=== PATIENT | female | born 1950 | race Caucasian/White ===

== ENCOUNTER → 2017-12-12 | Outpatient (CLI) | payer MEDICARE, OTHER ==
[~2017-12-12] MED LIST: ADULT LOW DOSE81 MG PO; ALDACTONE50 MG PO; ALLOPURINOL; ALLOPURINOL 30300 M1 PO; AMARYL4 MG PO; CARAFATE 1 GM TA1 GM PO; CELEXA40 MG PO; CIPROFLOXACIN500 M3 PO; CLEOCIN HCL75 MG; DILTIAZEM ER240 M1 PO; DILTIAZEM HCL90 MG PO; GLUCOPHAGE XR750 MG PO; IBUPROFEN 200200 M1 PO; LASIX 40 MG TAB40 M1 PO; LEVAQUIN 750 M750 MG PO; LEVEMIR SC; LEVOTHYROXIN0.025 MG PO; LISINOPRIL40 MG PO; LOW DOSE ASPIRI81 M1; MIRALAX17 GM PO; NITROFURANTOIN100 MG PO; NORCO 5-325 TA1 EAC1 PO; NORCO 5-325 TA1 EACH PO; NOVOLOG100 UNIT/1 SC; OXYCODONE HCL 55 MG PO; PEPCID40 MG PO; PERCOCET 7.5-31 EACH PO; PROZAC 20 MG20 MG PO; SERTRALINE HCL50 MG PO; SILVADENE20 GM TP; SYNTHROID100 MC1 PO; VALIUM5 MG PO; VITAMIN D1000 UNI1 PO; ZESTRIL10 MG PO; ZOCOR 20 MG TAB20 M1 PO; ZOFRAN4 MG; [UNRECOGNIZED DRUG - OTHER] PO; [UNRECOGNIZED DRUG - REMARK]
== END ==
LOC: M.CT 10:47
DX: K43.9 Ventral hernia without obstruction or gangrene (principal)

== ENCOUNTER → 2018-01-30 | Day surgery (SDC) | payer MEDICARE, OTHER ==
[~2018-01-30] VITALS: Ht 170.2 cm; Wt 104.3 kg
[2018-01-30 08:01] LABS: HEMATOCRIT 45.4 % (37.0-47.0); HEMOGLOBIN 15.1 gm/dL (12.0-15.0); MCHC 33.4 g/dL (28.0-37.0); MCV 89.9 fL (80.0-100.0); MPV 7.6 fl. (7.2-11.1); RBC 5.05 mil/uL (4.20-5.00); RDW-CV 13.5 % (10.5-14.5); WBC 9.9 thou/uL (4.0-11.0)
[2018-01-30 08:16] LABS: CALCIUM 8.5 mg/dL (8.5-10.1); CREATININE 0.9 mg/dL (0.6-1.3); POTASSIUM 3.3 mmol/L (3.5-5.1)
[2018-01-30 08:21] LABS: ALBUMIN 3.2 g/dL (3.4-5.0); TOTAL BILIRUBIN 0.8 mg/dL (<0.1-1.0); TOTAL PROTEIN 6.4 g/dL (6.4-8.2)
--- NOTE | 2018-01-30 16:31 | EKG ---
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1950 Requested By: Dorie Alcantar Order Number: [id number] Reading MD: Shahzad Chauhan Measurements Intervals [place] Rate: 66 P: 38 PA: 153 QRS: 10 QRSD: 97 T: 23 QT: 441 QTc: 463 Interpretive Statements Sinus rhythm Abnormal R-wave progression, early transition Nonspecific T-wave abnormality anteriorly Compared to ECG 02/01/2013 21:27:17 ST (T wave) deviation no longer present Electronically Signed On 01-30-2018 16:31:24 CDT by Shahzad Chauhan [email or web address] <ELECTRONICALLY SIGNED> By: Shahzad Chauhan MD, [facility] 01/30/18 1631 0749 0749 Shahzad Chauhan MD, [facility] /EPI
--- NOTE | 2018-02-03 13:08 | PATH ---
[address] [address] PATHOLOGY RPT PROCEDURE Name: EVELYN SCOTT Room: [facility]#: [id number] Admission: 01/30/18 Date of : 52 Discharge: Report #: [id number] Path Case #: [id number] [facility] Accession Number: [id number] . 01 Material submitted: . HERNIA SAC . 01 Clinical history: . Umbilical hernia . 02 Diagnosis: Hernia sac: - Benign mesothelial-lined fibromembranous/fibrofatty tissue. (NAUN/db; 02/02/18) LBQ/02/02/2018 . 02 Electronically signed: . Aniket Hernandez MD, Pathologist NPI- [id number] . 01 Gross description: . The specimen is received in formalin, labeled "Evelyn Scott, hernia sac", consist of a fibro-membranous tissue measuring 6.0 x 3.0 x 1.0 cm. No discrete nodules or masses identified. Integrated Marketing Specialist sections are submitted in A1. . (SWS; 01/30/2018) SHS/SHS . 02 Pathologist provided ICD-10: K46.9 . 02 CPT . 351729 Performed at: [address], [place] [id number] MD Corbin Ma MD Phone: [phone] Performed at: 02 [facility] [address], [place], [place] [id number] MD Aniket Hernandez MD Phone: [phone]
--- NOTE | 2018-02-05 13:35 | OP ---
[facility] [address] [place] [address] OPERATIVE REPORT Name: MICKY CALVILLO Room: [facility]#: [id number] Admission: 01/30/18 Attend Phys: Dorie Alcantar DO Discharge: Date of : 52 Report #: [id number] THIS REPORT FOR: //name// CC: Dorie Azar DATE OF SERVICE: 01/30/2018 PREPROCEDURE DIAGNOSIS: Umbilical hernia. POSTPROCEDURE DIAGNOSES: Umbilical hernia and an epigastric hernia. FINDINGS: The umbilical hernia measured 1 x 1 cm and contained omentum. The epigastric hernia measured 3 x 2 cm, had a very large hernia sac, which contained incarcerated omentum. SURGEON: Dorie Alcantar DO COSURGEON: Cordell Kelley, PGY2. HYDRAULIC JACK MECHANIC: Landon MS3. OPERATION PERFORMED: Repair of umbilical and epigastric hernia with mesh. ANESTHESIA: General endotracheal and local. ESTIMATED BLOOD LOSS: 10 mL. DRAINS: None. SPECIMENS: Sac. IMPLANT: A small Ventralex [place] mesh and a medium Ventralex [place] mesh. COMPLICATIONS: None. CONDITION: Stable. DISPOSITION: PACU to home. HISTORY OF PRESENT ILLNESS: The patient is a very pleasant 67-year-old female who presented to my office with a complaint of bulging and pain at her umbilicus. On physical exam, she had an obvious umbilical hernia. It was not able to be reduced. She was then consented for repair of this hernia. Risks discussed included bleeding, infection, pain, scar formation, injury to bowel, recurrence of the hernia, mesh complications requiring explantation and risks of [facility] [address] [facility] [place] [address] OPERATIVE REPORT Name: KARLIMICKY Tatiana Room: [facility]#: [id number] Admission: 01/30/18 Attend Phys: Dorie Alcantar DO Discharge: Date of : 52 Report #: [id number] general anesthesia. The patient understood these risks and elected to proceed. PROCEDURE NOTE: The patient was brought to the operating room. She was laid supine on the operating room table. SCDs were placed on bilateral lower extremities. Clindamycin was given in the perioperative period. General endotracheal anesthesia was induced by anesthesia without difficulty. Abdomen was prepped and draped in standard sterile fashion. Timeout was performed to verify patient and procedure. A 10 mL of 0.5% Marcaine were injected in the area of the planned incision. Incision was made with #15 blade. Cautery was used for hemostasis. S retractors were used to dissect down to the fatty tissues until fascia was identified. At this point, the hernia sac could be visualized attached to the umbilical stump. The fascial edges were cleared of any adhesions. Once the hernia sac was clearly visualized, it was then amputated from the umbilical stump using cautery. Sac was then opened. It contained only omentum, which was easily reduced into the abdomen. Fascial edges were cleared of any remaining sac or adhesions. Finger was then gently introduced into the abdomen and swept along the anterior abdominal wall in search of any further hernia defects. Approximately 3-4 inches superior to this hernia defect, an additional hernia defect was identified. Our incision was extended. We bluntly dissected down to the hernia sac. Hernia sac was gently grasped using a DeBakey and was cleared of all adhesions to the fascia. Hernia sac was then gently opened. Sac was then dissected free of the underlying fascia. This was then handed off as specimen. It did contain a fairly large amount of omentum, which was incarcerated within the sac. All adhesions were taken down and I was then able to reduce the omentum into the abdomen. Finger was reintroduced into the abdomen. Two small additional hernia defects were identified just superior and lateral to this defect. The small bridges of fascia were opened to create one larger defect. This defect then measured 3 x 2 cm. The remaining adhesions were then taken down. A medium Ventralex [place] mesh was then brought into the field and deployed into the epigastric hernia. Care was taken to make sure that the mesh was completely deployed and that no intraabdominal contents were caught between the mesh and the anterior abdominal wall. Mesh was then sutured into place using two stitches of 0 Prolene in a running fashion with excellent approximation of the mesh to the anterior abdominal wall. Defect itself was then closed over the mesh using multiple interrupted stitches of 0 Prolene in a mattress type fashion. I then returned my attention to the umbilical hernia. Small Ventralex ST mesh was introduced here. It was sutured into place using 2 interrupted stitches of 0 Prolene in a mattress fashion. The defect was then closed over the mesh using 2 interrupted stitches of 0 Prolene in a mattress fashion. This provided excellent coverage of the defect. Wound was irrigated with normal saline. Hemostasis was assured. An additional 20 mL of 0.5% Marcaine were injected on the fascia. Wound was closed in layered fashion using deep and superficial stitches of 3-0 Vicryl in inverted interrupted fashion. Skin was closed with a running 4-0 Monocryl. Skin was then cleansed and covered with Mastisol, Steri-Strips, 4 x 4's, and a Tegaderm. The patient was then allowed to awaken from anesthesia, was extubated [facility] [address] [place] [address] OPERATIVE REPORT Name: MICKY CALVILLO Room: [facility].Sarah#: [id number] Admission: 01/30/18 Attend Phys: Dorie Alcantar DO Discharge: Date of : 52 Report #: [id number] and transported to the recovery room with no further difficulties. Counts were correct x 2 at the conclusion of the case. Binder was placed in the operating room. <ELECTRONICALLY SIGNED> By: Dorie Alcantar DO 02/05/18 1335 1044 1109Chcamryn Alcantar DO /nt
== END | disposition home or self-care (01) ==
LOC: M.SUR 07:22
PROVIDERS: Surgery
DX: K43.6 Other and unspecified ventral hernia with obstruction, without gangrene (principal); K42.9 Umbilical hernia without obstruction or gangrene; I10 Essential (primary) hypertension; E11.9 Type 2 diabetes mellitus without complications; E03.9 Hypothyroidism, unspecified; Z90.710 Acquired absence of both cervix and uterus; Z98.890 Other specified postprocedural states; Z96.611 Presence of right artificial shoulder joint; Z98.84 Bariatric surgery status; Z90.49 Acquired absence of other specified parts of digestive tract; Z88.0 Allergy status to penicillin; Z79.899 Other long term (current) drug therapy

== ENCOUNTER 2018-02-05 14:34 | Emergency (ER) | payer MEDICARE, OTHER ==
[~2018-02-05] VITALS: Ht 170.2 cm; Wt 99.8 kg
[~2018-02-05 14:34] MED LIST changes: -CARAFATE 1 GM TA1 GM PO; -MIRALAX17 GM PO; -NITROFURANTOIN100 MG PO; -OXYCODONE HCL 55 MG PO; -PEPCID40 MG PO
[2018-02-05] MEDS ORDERED: OXYCODONE HCL 55 MG PO (14:47)
[2018-02-05] MEDS ORDERED: MIRALAX17 GM PO (14:47)
[2018-02-05 15:41] LABS: HEMOGLOBIN 15.8 gm/dL (12.0-15.0); NUCLEATED RBCS 0 /100WBC; RDW-CV 13.8 % (10.5-14.5)
[2018-02-05 15:42] LABS: ABSOLUTE EOSINOPHILS 0.1 thou/uL (0.0-0.7); ABSOLUTE LYMPHOCYTES 2.3 thou/uL (0.8-5.3); ABSOLUTE MONOCYTES 0.4 thou/uL (0.0-1.2); ABSOLUTE NEUTROPHILS 6.5 thou/uL (1.6-8.1); BASOPHILS 0.5 %; EOSINOPHILS 0.9 %; HEMATOCRIT 45.9 % (37.0-47.0); LYMPHOCYTES 25.1 %; MCH 30.6 pg (26.0-34.0); MCHC 34.3 g/dL (28.0-37.0); MCV 89.2 fL (80.0-100.0); MONOCYTES 4.3 %; MPV 7.6 fl. (7.2-11.1); PLATELET COUNT* 192 thou/uL (150-400); POLYS 69.2 %; RBC 5.15 mil/uL (4.20-5.00); WBC 9.3 thou/uL (4.0-11.0)
[2018-02-05 15:45] LABS: ANION GAP 5 mmol/L (7-16); APTT 27.3 Seconds (25.0-31.3); BUN 15 mg/dL (7-18); CALCIUM 9.1 mg/dL (8.5-10.1); CHLORIDE 99 mmol/L (98-107); CO2 32 mmol/L (21-32); GLUCOSE 120 mg/dL (70-99); INR 1.1; POTASSIUM 3.6 mmol/L (3.5-5.1); PROTIME 10.5 Seconds (9.20-11.50); SODIUM 136 mmol/L (136-145)
[2018-02-05 15:52] LABS: ALBUMIN 3.3 g/dL (3.4-5.0); ALKALINE PHOSPHATASE 123 U/L (46-116); SGOT 13 U/L (15-37); SGPT 11 U/L (30-65); TOTAL BILIRUBIN 0.7 mg/dL (<0.1-1.0); TOTAL PROTEIN 7.3 g/dL (6.4-8.2); TROPONIN-I LEVEL <0.06 ng/mL (<0.06)
[2018-02-05 17:39] LABS: URINE BILIRUBIN NEGATIVE (Negative); URINE BLOOD NEGATIVE (Negative); URINE CLARITY CLEAR; URINE COLOR YELLOW; URINE GLUCOSE-RANDOM NEGATIVE (Negative); URINE KETONES NEGATIVE (Negative); URINE NITRITE-REFLEX NEGATIVE (Negative); URINE PROTEIN NEGATIVE (Negative); URINE SPECIFIC GRAVITY 1.015 (1.005-1.030); URINE UROBILINOGEN >= 8.0 E.U./dl (0.2-1.0)
[2018-02-05 17:40] LABS: URINE LEUKOCYTES-REFLEX 3+ (Negative)
[2018-02-05 17:46] LABS: HYALINE CASTS 0-3 Few /LPF (None Seen); SQUAMOUS >10 Many /LPF (0-3)
[2018-02-05 17:47] LABS: CRYSTALS None Seen /LPF (None Seen); MUCUS 0-3 Light strn/LPF (None Seen)
[2018-02-05 17:49] LABS: URINE WBC-REFLEX 6-15 Few /HPF (0-5)
[2018-02-05 17:50] LABS: URINE RBC 0-2 Rare /HPF (0-2)
[2018-02-05] MEDS ORDERED: CARAFATE 1 GM TA1 GM PO (18:05)
[2018-02-05] MEDS ORDERED: PEPCID40 MG PO (18:05)
[2018-02-05] MEDS ORDERED: NITROFURANTOIN100 MG PO (18:05)
[2018-02-05 18:24] VITALS: BP 97/70
--- NOTE | 2018-02-06 13:18 | EKG ---
[place] [address] ELECTROCARDIOGRAM REPORT Name: MICKY CALVILLO Room: [facility]#: [id number] Admission: 02/05/18 Attend Phys: Discharge: 02/05/18 Date of : 52 Report #: [id number] THIS REPORT FOR: //name// [facility] ED Test Date: 2018-02-05 Test Time: 14:42:11 Pat Name: MICKY CALVILLO Department: Room: Gender: F Manager Intern: KAYCE : 1950 Requested By: Elsa Ramirez Order Number: [id number] MD: Manuel Vera Measurements Intervals [place] Rate: 71 P: 45 [place]: 146 QRS: 0 QRSD: 84 T: 32 QT: 624 QTc: 679 Interpretive Statements Sinus rhythm Abnormal R-wave progression, early transition Borderline repolarization abnormality Prolonged QT interval Baseline wander in lead(s) V1 Compared to ECG 01/30/2018 07:49:57 T-wave abnormality no longer present Electronically Signed On 02-06-2018 13:18:19 CDT by Manuel Vera [email or web address] <ELECTRONICALLY SIGNED> By: Manuel Vera MD, [facility] 02/06/18 1318 1442 1442 Manuel Vera MD, [facility] /EPI
== END 2018-02-05 18:25 | disposition home or self-care (01) ==
LOC: M.ERS 14:34
PROVIDERS: Personal Emergency Response Attendant
DX: R07.89 Other chest pain (principal); N39.0 Urinary tract infection, site not specified; E11.9 Type 2 diabetes mellitus without complications; I10 Essential (primary) hypertension; E03.9 Hypothyroidism, unspecified; Z90.49 Acquired absence of other specified parts of digestive tract; Z90.710 Acquired absence of both cervix and uterus; Z96.611 Presence of right artificial shoulder joint; Z88.0 Allergy status to penicillin

== ENCOUNTER → 2018-07-28 | Outpatient (CLI) | payer MEDICARE, OTHER ==
[~2018-07-28] MED LIST changes: +CARAFATE 1 GM TA1 GM PO; +MIRALAX17 GM PO; +NITROFURANTOIN100 MG PO; +OXYCODONE HCL 55 MG PO; +PEPCID40 MG PO
--- NOTE | 2018-07-29 11:28 | 2DMMODE ---
[place] [address] 2 D/M-MODE ECHOCARDIOGRAM Name: MICKY CALVILLO Room: [facility]#: [id number] Admission: 07/28/18 Attend Phys: Rowan Yoo, Discharge: Date of : 52 Date of Service: 07/29/18 1127 Report #: [id number] THIS REPORT FOR: //name// APPROVED REPORT Study performed: 07/28/2018 10:36:10 EXAM: Comprehensive 2D, Doppler, and color-flow Echocardiogram Patient Location: Out-Patient BSA: 2.10 HR: 67 bpm BP: 145/95 mmHg Other Information Study Quality: Fair Indications Abnormal ECG 2D Dimensions IVSd: 12.31 (7-11mm) LVOT Diam: 20.72 (18-24mm) LVDd: 41.30 mm PWd: 8.89 (7-11mm) Ascending Ao: 37.15 (22-36mm) LVDs: 29.45 (25-40mm) Aortic Root: 28.51 mm Volumes Left Atrial Volume (Systole) LA ESV Index: 13.80 mL/m2 Aortic Valve AoV Peak Sean.: 1.53 m/s AO Peak Gr.: 9.41 mmHg LVOT Max P.13 mmHg AO Mean Gr.: 4.56 mmHg LVOT Mean P.57 mmHg LVOT Max V: 0.88 m/s AO V2 VTI: 26.51 cm LVOT Mean V: 0.57 m/s FREDDY (VTI): 2.38 cm2 LVOT V1 VTI: 18.72 cm Mitral Valve E/A Ratio: 0.51 MV Decel. Time: 401.96 ms MV E Max Sean.: 0.45 m/s MV PHT: 116.57 ms MVA (PHT): 1.89 [place]2 [place] [address] 2 D/M-MODE ECHOCARDIOGRAM Name: ORLANDO CALVILLOSREE COOPER Room: [facility]#: [id number] Admission: 07/28/18 Attend Phys: Rowan Yoo, Discharge: Date of : 52 Date of Service: 07/29/18 1127 Report #: [id number] TDI E/Lateral E': 4.09 E/Medial E': 5.63 Medial E' Sean.: 0.08 m/s Lateral E' Sean.: 0.11 m/s Pulmonary Valve PV Peak Sean.: 0.82 m/s PV Peak Gr.: 2.68 mmHg Left Ventricle The left ventricle is normal size. There is normal LV segmental wall motion. There is normal left ventricular wall thickness. Left ventricular systolic function is normal. The left ventricular ejection fraction is within the normal range. LVEF is 55-60%. Grade I - abnormal relaxation pattern. Right Ventricle The right ventricle is normal size. The right ventricular systolic function is normal. Atria The left atrium size is normal. The right atrium size is normal. Aortic Valve Mild aortic valve sclerosis. No aortic regurgitation is present. There is no aortic valvular stenosis. Mitral Valve The mitral valve is normal in structure. There is no mitral valve regurgitation noted. No evidence of mitral valve stenosis. Tricuspid Valve The tricuspid valve is normal in structure. There is no tricuspid valve regurgitation noted. Pulmonic Valve The pulmonary valve is normal in structure. There is no pulmonic valvular regurgitation. Great Vessels The aortic root is normal in size. IVC is normal in size and collapses >50% with inspiration. Pericardium There is [place] [address] 2 D/M-MODE ECHOCARDIOGRAM Name: MICKY CALVILLO KENNETH Room: [facility]#: [id number] Admission: 07/28/18 Attend Phys: Rowan Yoo, Discharge: Date of : 52 Date of Service: 07/29/18 1127 Report #: [id number] <Conclusion> The left ventricle is normal size. There is normal left ventricular wall thickness. Left ventricular systolic function is normal. The left ventricular ejection fraction is within the normal range. LVEF is 55-60%. Grade I - abnormal relaxation pattern. The right ventricle is normal size. The left atrium size is normal. Mild aortic valve sclerosis. No aortic regurgitation is present. There is no aortic valvular stenosis. The mitral valve is normal in structure. The tricuspid valve is normal in structure. IVC is normal in size and collapses >50% with inspiration. There is no pericardial effusion. There is normal LV segmental wall motion. <ELECTRONICALLY SIGNED> By: Mando Terry MD, [facility] 07/29/18 1127 112 112 Mando Terry MD, [facility] /INF
== END ==
LOC: M.CRD 09:50
DX: I35.0 Nonrheumatic aortic (valve) stenosis (principal); R94.31 Abnormal electrocardiogram [ECG] [EKG]